=== PATIENT | male | born 1955 | race Caucasian/White ===

== ENCOUNTER 2017-02-09 02:51 | Emergency (ER) | payer OTHER ==
[~2017-02-09] VITALS: Ht 182.9 cm; Wt 100.0 kg
[2017-02-09 02:57] VITALS: BP 93/63; PULSE 70; RESP 16; O2SAT 100
--- NOTE | 2017-02-09 04:03 | ED.REPORT ---
HPI- Male Date of Service Feb 09, 2017 ED Provider: Leonel Rapp MD Marlon mendoza is a pleasant 61-year-old gentleman with a history of hypertension, diabetes not insulin using, presents to the [facility] emergency department with the complaint of sudden attendance left testicular pain happened roughly 1 in the morning while he was asleep, awoke him from his sleep. He has never had this before. On triage he was asked to leave a urine sample, at which point he was able to pass small stone roughly half the size of a pea, on evaluation he states that his pain has completely resolved. He has a history of kidney stones, one 10 years ago and one other in high school. He states he has been exercising more recently, running on a treadmill to help himself lose weight. He says his diet is not rich and red meat, does not drink much alcohol, does not smoke, and tries to stay well-hydrated. He is not on any diuretics. He says his testicles are braiding machine tender to the touch left greater than right. He denies fever, does state he had some chills while having the acute pain before coming to the ER, no cold sweats, no nausea vomiting diarrhea, no chest pain, no shortness of breath, no rashes, no recent illness, no dysuria. He does state he did have lower back pain this evening before going to sleep. Nursing Notes Stated Complaint: TESTICULAR PAIN Chief Complaint: Male Abdominal Pain Nursing Notes Reviewed: Yes Allergies: Coded Allergies: No Known Allergies (Unverified , 02/09/17) Scheduled Doxycycline Monohyd (Doxycycline Monohyd) 100 Mg Capsule 100 MG PO BID General Time Seen by MD: 03:09 Chief Complaint Testicle painful left Hx Obtained From: Patient, Spouse Similar Sx Previous: No Risk- Male Torsion Risk Stratification Torsion Risk: No Haines Clapper Deformity, No Prior Torsion, No Puberty Past Medical History Past Medical History Diabetes Past Surgical History Vasectomy Tonsillectomy Family History Noncontributory Smoking History Never Smoker Social History Drug Use: Denies drug use Review of Systems Complete sys rev & neg: except as marked. Physical Exam General: Laying in bed, no apparent distress. HEENT: Normocephalic, atraumatic, EOMI grossly, mucous membranes moist, conjunctivae pink, neck supple without lymphadenopathy, Cardiovascular: Regular rate and rhythm, no clicks murmurs rubs, peripheral pulses 2/4 equal bilaterally Pulmonary: Clear to auscultation bilaterally, no W/R/R. Abdominal: Soft to palpation, bowel sounds present 4, no hepatosplenomegaly. Negative rebound. : Penis is atraumatic, urethra is patent, scrotum is nonswollen, testicles are roughly equal in size, both are tender, left greater than right, epididymi are tender, left greater than right, spermatic cord are palpable bilaterally, also tender. Extremities: No edema appreciated. No tenderness, asymmetry. Neuro: Neurologically grossly intact, strength is equal bilaterally upper and lower extremities. MSK: Gait is normal, able to move extremities on their own volition, strength 5 out of 5 equal bilaterally to upper and lower extremities. Initial Vital Signs Vital Signs (First) Date Time Temp Pulse Resp B/P Pulse Ox O2 Delivery O2 Flow Rate FiO2 02/09/17 02:57 35.8 70 16 93/63 100 Room Air Initial VS: Reviewed, Vital signs abnormal Interpretation & Diagnostics Lab Results Interpretation Test 02/09/17 04:00 Urine Color Yellow (YELLOW) Urine Appearance Slightly cloudy Urine pH 6.0 (5.0-8.0) Urine Specific [place] 1.020 (1.003-1.035) Urine Protein Tracemg/dL (NEG,TRACE) Urine Glucose (UA) Negativemg/dL (NEGATIVE) Urine Ketones Tracemg/dL (NEGATIVE) Urine Occult Blood Large (NEGATIVE) Urine Nitrite Negative (NEGATIVE) Urine Bilirubin Negative (NEGATIVE) Urine Urobilinogen Normalmg/dL (NORMAL) Urine Leukocyte Esterase Negative (NEGATIVE) Urine RBC >50/hpf (0-2) Urine WBC 0-5/hpf (0-5) Urine Epithelial Cells Few/hpf (NONE-MOD) Urine Crystals None seen (NONE SEEN) Urine Bacteria Few/hpf (NONE-FEW) Urine Hyaline Casts None/lpf (NONE) Urine Granular Casts None seen (NONE SEEN) Urine Waxy Casts None seen (NONE SEEN) Urine Red Blood Cell Casts None seen (NONE SEEN) Urine White Blood Cell Casts None seen (NONE SEEN) Urine Mucus None seen (None Seen) Urine Trichomonas None seen (NONE SEEN) Urine Yeast None (NONE SEEN) Urinalysis Comment None Urine Culture Reflexed Not indicated Lab Results Interpretation: Hematuria Obvious nephrolith in urine sample Re-Eval/Medical Decision Med Decision/Clinical Course Time of evaluation patient stated pain had resolved. Physical exam revealed tender testicles, left greater than right, with epididymis point of most tenderness on both testicles. Based on the patient's age, history, physical presentation, felt that his pain is most likely due to epididymitis, not caused by gonorrhea or chlamydia, and exacerbated by passage of nephrolith. Findings, interpretation, and plan were discussed with the patient and his , they stated understanding and agreement that antibiotics need to be taken and that there needs to be followed up with primary care regarding epididymitis and nephrolithiasis. Counseled Regarding: Diagnosis, Lab results, Need for follow-up, When/why to return to ED Discharge & Departure Impression: Primary Impression: Nephrolithiasis Additional Impressions: Testicular pain Epididymitis, bilateral Disposition: Home Discharge Condition All VS Reviewed: Yes Condition: Stable Patient Instructions: Epididymitis (ED), Nephrolithiasis (ED) Additional Instructions: It is felt that the cause of your pain is most likely due to an infection of a part of your testicles known as the epididymis, and was exacerbated by the passing of a kidney stone. We are giving an antibiotic to treat the infection, please take as prescribed. Please follow-up with your primary care doctor regarding her emergency room visit. He spends any worsening of symptoms, fever, chills, lightheadedness, dizziness, rash, sensation of your heart beating harder or faster no reason at all, or short of breath please do not hesitate to return to the emergency department or call 911 if necessary. In regards to your kidney stone please drink plenty of fluids, if you experience any back pain that comes and goes, please follow-up with your primary care doctor or come to the ER if necessary. Attending Statment The patient was seen and examined together with Dr. Brian Garrett and I agree with the history, exam and plan as outlined in the note above. copies to: Loc Sands MD, Noah M DO Feb 09, 2017 03:39 Leonel Rapp MD Feb 09, 2017 05:31
[2017-02-09 04:25] LABS: APPEARANCE,URINE SLIGHTLY CLOUDY (CLEAR,HAZY); COLOR,URINE YELLOW (YELLOW); OCCULT BLOOD,URINE LARGE (NEGATIVE); UROBILINOGEN,URINE NORMAL (NORMAL)
[2017-02-09] MEDS ORDERED: DOXY100C43 PO (04:37)
== END 2017-02-09 04:42 | disposition home or self-care (01) ==
LOC: SED 02:51
DX: N20.0 Calculus of kidney (principal); N45.1 Epididymitis; I10 Essential (primary) hypertension; E11.9 Type 2 diabetes mellitus without complications; Z98.52 Vasectomy status